=== PATIENT | female | born 1965 | race African-American/Black ===

== ENCOUNTER 2017-01-16 16:41 | Emergency (ER) | payer BC ==
[2017-01-16 16:53] VITALS: TEMP 98.4; BMI 33.8
--- NOTE | 2017-01-16 18:14 | PDOC ---
History of Present Illness - General Chief Complaint: Palpitations Stated Complaint: PALPITATIONS Time Seen by Provider: 01/16/17 17:25 History Source: Patient Exam Limitations: No Limitations - History of Present Illness Initial Comments: 01/16/17 18:14 51 year old female without any significant past medial history presenting with two days of palpitations. She states that over the past 3-4 years she has had these palpitations a few times per month which she describes as a sensation "as if someone is scaring me and my heart races for a little bit". She takes no medications. She denies any syncope, pre-syncope, chest pain, diaphoresis, nausea, vomiting or other symptoms. 01/16/17 18:48 Past History - Past Medical History Allergies/Adverse Reactions: Allergies Allergy/AdvReac Type Severity Reaction Status Date / Time Penicillins Allergy Verified 01/16/17 16:49 Home Medications: Ambulatory Orders NK [No Known Home Medication] 01/16/17 - Psycho/Social/Smoking Cessation Hx Suicidal Ideation: No Smoking History: Never smoked Review of Systems - Review of Systems Constitutional: No: Chills, Diaphoresis, Fever, Loss of Appetite HEENTM: No: Blurred Vision, Tearing, Recent change in vision Respiratory: No: Cough, Orthopnea, Shortness of Breath, SOB with Exertion, SOB at Rest Cardiac (ROS): Yes: Palpitations. No: Chest Pain, Edema, Lightheadedness, Syncope, Chest Tightness ABD/GI: No: Abdominal Distended, Constipated, Diarrhea, Difficulty Swallowing, Nausea, Poor Appetite, Abdominal cramping : No: Dysuria, Frequency, Hematuria, Incontinence, Pain Musculoskeletal: No: Back Pain, Joint Swelling, Joint Stiffness Integumentary: No: Dryness, Erythema, Flushing, Sweating Neurological: Yes: Paresthesia. No: Headache, Numbness Psychiatric: Yes: Anxiety, Frequent Crying, Stressors Endocrine: No: Excessive Sweating, Flushing, Intolerance to Cold, Intolerance to Heat *Physical Exam - Vital Signs Last Vital Signs Temp Pulse Resp BP Pulse Ox 98.4 F 93 H 18 130/74 100 01/16/17 16:50 01/16/17 16:50 01/16/17 16:50 01/16/17 16:50 01/16/17 16:50 - Physical Exam General Appearance: Yes: Nourished, Appropriately Dressed. No: Apparent Distress HEENT: positive: EOMI, NO, Normal Voice Neck: positive: Trachea midline, Normal Thyroid. negative: Tender Respiratory/Chest: positive: Lungs Clear, Normal Breath Sounds. negative: Chest Tender, Respiratory Distress, Accessory Muscle Use, Decreased Breath Sounds Cardiovascular: positive: Regular Rhythm, Regular Rate, S1, S2, Edema. negative : JVD, Murmur Gastrointestinal/Abdominal: positive: Normal Bowel Sounds, Flat, Soft. negative : Tender, Organomegaly, Pulsatile Mass Musculoskeletal: positive: Normal Inspection. negative: Decreased Range of Motion Extremity: positive: Normal Inspection, Normal Range of Motion Integumentary: positive: Normal Color, Dry, Warm Neurologic: positive: Fully Oriented, Alert, Normal Mood/Affect, Normal Response Medical Decision Making - Medical Decision Making 01/16/17 18:48 Previous healthy 51 year old female without significant PMH presenting with subjective palpitations over the past two days in the setting of significant life stresses. Her EKG was normal and symptomatically un-concerning so she was OK to go home with cardiology follow up. Had a hysterectomy so no test ordered. *DC/Admit/Observation/Transfer Diagnosis at time of Disposition: Palpitations - Discharge Dispostion Disposition: HOME Condition at time of disposition: Improved Admit: No - Referrals Referrals: Marilin Naik MD [Primary Care Provider] - Vijay Watt MD [Staff Physician] - - Attestations Physician Attestion: You were seen for palpitations and strange sensation in your chest. We did an EKG and didn't see any concerning changes. We recommend that you follow up with the [employer] Dr. Watt for another holter monitor evaluation. Please return if you have worsening symptoms or chest pain. 01/16/17 18:58 01/16/17 18:58
--- NOTE | 2017-01-16 18:24 | PDOC ---
Attending Attestation - Resident Resident Name: Joseph Jiménez - ED Attending Attestation I have performed the following: I have examined & evaluated the patient, The case was reviewed & discussed with the resident, I agree w/resident's findings & plan, Exceptions are as noted - HPI HPI: 01/16/17 18:52 51y F no pmhx presents with palpitations. Pt states that she frequently has palpitations andwith chava sensation of someone 'scaring her' and her heart races for a bit and usually stops when she coughs. there is no associated lightheadeness, syncope, sob, diarrhea, vaginal bleeding (s/p hysterectomy), no associated weight loss, hair loss, rectal bleeding, melena, abd pain, cp. pt has had workup with cardiology where she had a holter monitor, she was told there was some extra beats, (she didnt remember the name of the diagnosis). No recent new meds, no drug use. pts exam unremarkble pts ekg shows sinus rhthm with rate of 91 pt had lab work from PMD in November that was normal will defer lab work for now as pt declines it if not necessary will have pt fu with PMD and cardiology for further evaluation I discussed the physical exam findings, ancillary test results and final diagnoses with the patient. I answered all of the patient's questions. The patient was satisfied with the care received and felt comfortable with the discharge plan and treatment plan. The patient will call their primary care physician within 24 hours to arrange follow-up and will return to the Emergency Department with any new, persistent or worsening symptoms. - Physicial Exam PE: 01/16/17 20:04 see above - Medical Decision Making 01/16/17 20:04 see above Heart Score/ECG Review - ECG Impressions Comment:: 01/16/17 18:59 Twelve-lead EKG was performed and reviewed by me. There is normal sinus rhythm with a normal rate. rate of 91 nonspecific t wave abnormality
[2017-01-16 18:32] VITALS: BP 129/72; PULSE 89
--- NOTE | 2017-01-21 14:54 | EKG ---
Test Reason : Blood Pressure : / mmHG Vent. Rate : 091 BPM Atrial Rate : 091 BPM P-R Int : 152 ms QRS Dur : 070 ms QT Int : 358 ms P-R-T Axes : 080 012 013 degrees QTc Int : 440 ms NORMAL SINUS RHYTHM POSSIBLE LEFT ATRIAL ENLARGEMENT NONSPECIFIC T WAVE ABNORMALITY ABNORMAL ECG NO PREVIOUS ECGS AVAILABLE Confirmed by DARYN VENEGAS MD ([id number]) on 01/21/2017 2:54:05 PM Referred By: Confirmed By:DARYN VENEGAS MD
== END 2017-01-16 19:09 | disposition home or self-care (01) ==
LOC: JER 16:41
DX: R00.2 Palpitations (principal)
CPT/HCPCS: 93005; 93010; 99283-25